=== PATIENT | female | born 1955 | race Caucasian/White ===

== ENCOUNTER 2016-12-07 17:02 | Observation (INO) | payer OTHER ==
[~2016-12-07] VITALS: Ht 162.6 cm; Wt 81.6 kg
[~2016-12-07 17:02] MED LIST: ADVIL200 MG OR; ALLOPURINOL100 MG PO; ASPIRIN LOW DOS81 M2 PO; ASPIRIN325 MG PO; ASPIRIN81 M1 OR; AUGMENTIN875TAB PO; AZOR1 TA1 PO; BENICAR20 MG PO; CENTRU3 PO; CEPHALEXIN500 MG PO; CRESTOR10 MG OR; CRESTOR5 MG PO; DILTIAZEM120 MG PO; DILTIAZEM90 M1 PO; HYDROCHLOROT25 MG OR; HYDROCHLOROT25 MG PO; IMODIUM2 MG PO; K-DUR/KLOR-CON20 MEQ PO; KLOR-CON20 MEQ PO; LEVAQUIN500 MG OR; LEVOTHYROXIN25 MC1 PO; LISINOPRIL10 MG PO; LORAZEPAM0.5 MG PO; LORTAB 5/3255 MG PO; LOSARTAN POT25 MG PO; MAG6464 MG PO; MAGNACAPS100 MG PO; NEXIUM40 M1 OR; NORVASC2.5 MG OR; NORVASC2.5 MG PO; NORVASC5 M1 PO; OMEPRAZOLE20 MG PO; OXYCODONE10 M1 PO; PERCOCET 10/31 COMBO PO; PERCOCET 5/325M1 TAB PO; PERCOCET1 TA4 PO; POT CHLORIDE20 ME3 OR; PRALUENT75 MG/ML IM; SPIRONOLACT25 MG PO; ST JOSEPH75 MG OR; TRAMADOL HYDROC50 MG PO; TYLENOL # 31 TA1 PO; VITAMIN D31000 UNI1 PO; WELCHOL3.75 GM OR; WELLBUTRI1 OR; XANAX0.25 MG OR; XANAX0.5 MG PO; ZOFRAN4 MG/TAB PO; ZOLPIDEM10 M1 PO; ZOLPIDEM5 M1 PO
[2016-12-07 18:06] LABS: URINE BILIRUBIN - DIPSTICK NEGATIVE (NEGATIVE); URINE BLOOD DIPSTICK TRACE-INTACT (NEGATIVE); URINE CLARITY CLEAR; URINE COLOR YELLOW; URINE GLUCOSE - DIPSTICK NEGATIVE (NEGATIVE); URINE KETONE NEGATIVE (NEGATIVE); URINE LEUK ESTERASE NEGATIVE (NEGATIVE); URINE NITRITE - DIPSTICK NEGATIVE (Negative); URINE PROTEIN - DIPSTICK NEGATIVE (NEG-TRACE); URINE SPECIFIC GRAVITY <=1.005; URINE UROBILINOGEN - DIPSTICK 0.2 E.U./dL (0.2)
[2016-12-07 18:12] LABS: HEMATOCRIT 39.4 % (37.0-47.0); HEMOGLOBIN 13.5 g/dl (12.0-16.0); IMMATURE GRANULOCYTES 0.3 % (0.0-1.0); MEAN CELL VOLUME 94.9 fL CALC (80.0-100.0); MEAN CORPUSCULAR HGB 32.5 pG CALC (26.0-32.0); MEAN CORPUSCULAR HGB CONC 34.3 g/L CALC (32.0-36.0); NEUT# 5.69 thou/uL (2.00-7.15); RED BLOOD COUNT 4.15 mill/uL (4.20-5.60); RED CELL DISTRI WIDTH 12.4 % (11.5-15.5)
[2016-12-07 18:26] LABS: ALBUMIN 4.9 g/dL (3.2-5.0); ALKALINE PHOSPHATASE 81 u/l (38-126); AMYLASE 76 u/l (30-110); ANION GAP 17 (6-22 (CALC)); BILIRUBIN, TOTAL 0.7 mg/dL (0.0-1.4); BUN 13 mg/dL (8-23); BUN/CREATININE RATIO 12 (12-20 (CALC)); CALCIUM 10.1 mg/dL (8.4-10.2); CARBON DIOXIDE 25 mmol/l (22-30); CHLORIDE 101 mmol/l (95-108); CREATININE 1.1 mg/dL (0.5-1.0); GFR 50 ML/MIN (>=60 (CALC)); GFR FOR AFR.AMER. > 60 ML/MIN (>=60 (CALC)); GLUCOSE 111 mg/dL (82-115); LIPASE 164 u/l (23-300); POTASSIUM 3.8 mmol/l (3.5-5.1); SGOT/AST 32 u/l (9-36); SGPT/ALT 37 u/l (11-66); SODIUM 139 mmol/l (137-146); TOTAL PROTEIN 8.1 g/dL (6.3-8.2)
[2016-12-07 18:34] LABS: MYOGLOBIN 44 ng/mL (0 - 62)
[2016-12-07 23:00] VITALS: BP 189/84
[2016-12-08 00:15] VITALS: BP 144/62
[2016-12-08 05:10] VITALS: BP 154/94
[2016-12-08 06:43] LABS: HEMATOCRIT 38.8 % (37.0-47.0); HEMOGLOBIN 12.9 g/dl (12.0-16.0); IMMATURE GRANULOCYTES 0.3 % (0.0-1.0); MEAN CELL VOLUME 97.5 fL CALC (80.0-100.0); MEAN CORPUSCULAR HGB 32.4 pG CALC (26.0-32.0); MEAN CORPUSCULAR HGB CONC 33.2 g/L CALC (32.0-36.0); NEUT# 3.13 thou/uL (2.00-7.15); RED BLOOD COUNT 3.98 mill/uL (4.20-5.60); RED CELL DISTRI WIDTH 12.7 % (11.5-15.5)
[2016-12-08 07:03] LABS: ANION GAP 15 (6-22 (CALC)); BUN 13 mg/dL (8-23); BUN/CREATININE RATIO 13 (12-20 (CALC)); CALCIUM 9.9 mg/dL (8.4-10.2); CARBON DIOXIDE 28 mmol/l (22-30); CHLORIDE 101 mmol/l (95-108); GFR 56 ML/MIN (>=60 (CALC)); GFR FOR AFR.AMER. > 60 ML/MIN (>=60 (CALC)); GLUCOSE 97 mg/dL (82-115); POTASSIUM 4.1 mmol/l (3.5-5.1); SODIUM 139 mmol/l (137-146)
[2016-12-08 07:59] VITALS: BP 132/69
[2016-12-08 08:21] VITALS: BP 132/69
[2016-12-08] MEDS ORDERED: NORVASC2.5 MG PO (11:22)
[2016-12-08] MEDS ORDERED: BUSPAR5 M1 PO (11:23)
== END 2016-12-08 12:16 | disposition home or self-care (01) | DRG 313 ==
LOC: ENPENDDIS → ED 17:02 → ED-I 21:00 → ED 21:19 → MS2 21:20
PROVIDERS: Emergency Medicine; ADMIT Internal Medicine; ATTEND Internal Medicine
DX: R07.9 Chest pain, unspecified (principal); I10 Essential (primary) hypertension; K44.9 Diaphragmatic hernia without obstruction or gangrene; F41.9 Anxiety disorder, unspecified; F41.0 Panic disorder [episodic paroxysmal anxiety]; K21.9 Gastro-esophageal reflux disease without esophagitis; E78.5 Hyperlipidemia, unspecified; D30.00 Benign neoplasm of unspecified kidney; E03.9 Hypothyroidism, unspecified; R91.1 Solitary pulmonary nodule; F32.9 Major depressive disorder, single episode, unspecified; Z87.891 Personal history of nicotine dependence
CPT/HCPCS: G0378

== ENCOUNTER 2017-02-03 18:39 | Emergency (ER) | payer OTHER ==
[~2017-02-03] VITALS: Ht 162.6 cm; Wt 85.0 kg
[~2017-02-03 18:39] MED LIST changes: +BUSPAR5 M1 PO
[2017-02-03] MEDS ORDERED: AMLODIPINE BESYL5 MG PO (18:57)
[2017-02-03 20:58] LABS: HEMATOCRIT 37.9 % (37.0-47.0); HEMOGLOBIN 12.8 g/dl (12.0-16.0); IMMATURE GRANULOCYTES 0.2 % (0.0-1.0); MEAN CELL VOLUME 96.2 fL CALC (80.0-100.0); MEAN CORPUSCULAR HGB 32.5 pG CALC (26.0-32.0); MEAN CORPUSCULAR HGB CONC 33.8 g/L CALC (32.0-36.0); NEUT# 5.54 thou/uL (2.00-7.15); RED BLOOD COUNT 3.94 mill/uL (4.20-5.60); RED CELL DISTRI WIDTH 12.5 % (11.5-15.5)
[2017-02-03 20:59] LABS: URINE BILIRUBIN - DIPSTICK NEGATIVE (NEGATIVE); URINE BLOOD DIPSTICK TRACE-INTACT (NEGATIVE); URINE CLARITY CLEAR; URINE COLOR YELLOW; URINE GLUCOSE - DIPSTICK NEGATIVE (NEGATIVE); URINE KETONE NEGATIVE (NEGATIVE); URINE LEUK ESTERASE NEGATIVE (NEGATIVE); URINE NITRITE - DIPSTICK NEGATIVE (Negative); URINE PROTEIN - DIPSTICK NEGATIVE (NEG-TRACE); URINE SPECIFIC GRAVITY <=1.005; URINE UROBILINOGEN - DIPSTICK 0.2 E.U./dL (0.2)
[2017-02-03 21:27] LABS: ALBUMIN 4.5 g/dL (3.2-5.0); ALKALINE PHOSPHATASE 49 u/l (38-126); ANION GAP 17 (6-22 (CALC)); BILIRUBIN, TOTAL 0.5 mg/dL (0.0-1.4); BUN 15 mg/dL (8-23); BUN/CREATININE RATIO 14 (12-20 (CALC)); CALCIUM 9.6 mg/dL (8.4-10.2); CARBON DIOXIDE 24 mmol/l (22-30); CHLORIDE 102 mmol/l (95-108); CREATININE 1.1 mg/dL (0.5-1.0); GFR 50 ML/MIN (>=60 (CALC)); GFR FOR AFR.AMER. > 60 ML/MIN (>=60 (CALC)); GLUCOSE 109 mg/dL (82-115); POTASSIUM 3.8 mmol/l (3.5-5.1); SGOT/AST 23 u/l (9-36); SGPT/ALT 35 u/l (11-66); SODIUM 139 mmol/l (137-146); TOTAL PROTEIN 7.2 g/dL (6.3-8.2)
[2017-02-03 23:15] VITALS: BP 116/56
[2017-02-03] MEDS ORDERED: ULTRAM50 M1 PO (23:26)
[2017-02-03] MEDS ORDERED: KEFLEX500 M1 PO (23:26)
== END 2017-02-03 23:15 | disposition home or self-care (01) | DRG 607 ==
LOC: ED 18:39
PROVIDERS: Emergency Medicine
DX: R22.42 Localized swelling, mass and lump, left lower limb (principal); M79.672 Pain in left foot; X58.XXXA Exposure to other specified factors, initial encounter; Y93.H9 Activity, other involving exterior property and land maintenance, building and construction; Y92.007 Garden or yard of unspecified non-institutional (private) residence as the place of occurrence of the external cause

== ENCOUNTER 2017-08-04 14:07 | Emergency (ER) | payer OTHER ==
[~2017-08-04] VITALS: Ht 152.4 cm; Wt 87.0 kg
[~2017-08-04 14:07] MED LIST changes: +AMLODIPINE BESYL5 MG PO; +KEFLEX500 M1 PO; +ULTRAM50 M1 PO
[2017-08-04 15:06] LABS: HEMATOCRIT 40.6 % (37.0-47.0); HEMOGLOBIN 13.9 g/dl (12.0-16.0); IMMATURE GRANULOCYTES 0.2 % (0.0-1.0); MEAN CELL VOLUME 94.9 fL CALC (80.0-100.0); MEAN CORPUSCULAR HGB 32.5 pG CALC (26.0-32.0); MEAN CORPUSCULAR HGB CONC 34.2 g/L CALC (32.0-36.0); NEUT# 6.47 thou/uL (2.00-7.15); RED BLOOD COUNT 4.28 mill/uL (4.20-5.60); RED CELL DISTRI WIDTH 13.1 % (11.5-15.5)
[2017-08-04 15:28] LABS: ALBUMIN 5.2 g/dL (3.2-5.0); BILIRUBIN, TOTAL 0.7 mg/dL (0.0-1.4); CREATININE 1.2 mg/dL (0.5-1.0); POTASSIUM 4.2 mmol/l (3.5-5.1); TOTAL PROTEIN 7.9 g/dL (6.3-8.2)
[2017-08-04 15:43] LABS: URINE BILIRUBIN - DIPSTICK NEGATIVE (NEGATIVE); URINE BLOOD DIPSTICK TRACE-INTACT (NEGATIVE); URINE COLOR YELLOW; URINE GLUCOSE - DIPSTICK NEGATIVE (NEGATIVE); URINE KETONE NEGATIVE (NEGATIVE); URINE LEUK ESTERASE NEGATIVE (NEGATIVE); URINE NITRITE - DIPSTICK NEGATIVE (Negative); URINE PROTEIN - DIPSTICK NEGATIVE (NEG-TRACE); URINE UROBILINOGEN - DIPSTICK 0.2 E.U./dL (0.2)
[2017-08-04 16:10] LABS: URINE CLARITY CLEAR
[2017-08-04 16:39] VITALS: BP 159/86
== END 2017-08-04 16:39 | disposition home or self-care (01) | DRG 392 ==
LOC: ED 14:07
PROVIDERS: Family Medicine
DX: R10.31 Right lower quadrant pain (principal); E78.5 Hyperlipidemia, unspecified; I10 Essential (primary) hypertension; F41.9 Anxiety disorder, unspecified

== ENCOUNTER 2018-05-13 16:00 | Emergency (ER) | payer OTHER ==
[~2018-05-13] VITALS: Ht 162.6 cm; Wt 95.0 kg
[2018-05-13 17:12] LABS: HEMATOCRIT 38.7 % (37.0-47.0); HEMOGLOBIN 13.2 g/dl (12.0-16.0); IMMATURE GRANULOCYTES 0.3 % (0.0-5.0); MEAN CELL VOLUME 97.2 fL CALC (80.0-100.0); MEAN CORPUSCULAR HGB 33.2 pG CALC (26.0-32.0); MEAN CORPUSCULAR HGB CONC 34.1 g/L CALC (32.0-36.0); NEUT# 4.47 thou/uL (2.00-7.15); RED BLOOD COUNT 3.98 mill/uL (4.20-5.60); RED CELL DISTRI WIDTH 12.7 % (11.5-15.5)
[2018-05-13] MEDS ORDERED: OXYCODONE HCL5 MG PO (17:26)
[2018-05-13] MEDS ORDERED: LORAZEPAM0.5 MG PO (17:27)
[2018-05-13] MEDS ORDERED: ZOLPIDEM5 MG PO (17:27)
[2018-05-13 17:28] LABS: ALBUMIN 4.3 g/dL (3.2-5.0); BILIRUBIN, TOTAL 0.5 mg/dL (0.0-1.4); CREATININE 1.2 mg/dL (0.5-1.0); POTASSIUM 4.2 mmol/l (3.5-5.1); TOTAL PROTEIN 7.1 g/dL (6.3-8.2)
[2018-05-13] MEDS ORDERED: LOSARTAN POT25 MG PO (17:28)
[2018-05-13] MEDS ORDERED: TORADOL PO (17:33)
[2018-05-13] MEDS ORDERED: FLEXERIL PO (17:33)
[2018-05-13 17:47] VITALS: BP 129/75
== END 2018-05-13 17:48 | disposition home or self-care (01) | DRG 552 ==
LOC: ED 16:00
PROVIDERS: Emergency Medicine
DX: S16.1XXA Strain of muscle, fascia and tendon at neck level, initial encounter (principal); M54.9 Dorsalgia, unspecified; K59.00 Constipation, unspecified

== ENCOUNTER 2018-11-13 07:08 | Emergency (ER) | payer OTHER ==
[~2018-11-13] VITALS: Ht 162.6 cm; Wt 88.2 kg
[~2018-11-13 07:08] MED LIST changes: +FLEXERIL PO; +OXYCODONE HCL5 MG PO; +TORADOL PO; +ZOLPIDEM5 MG PO
[2018-11-13 07:39] LABS: HEMATOCRIT 40.9 % (37.0-47.0); IMMATURE GRANULOCYTES 0.2 % (0.0-5.0); MEAN CELL VOLUME 94.5 fL CALC (80.0-100.0); MEAN CORPUSCULAR HGB 32.3 pG CALC (26.0-32.0); MEAN CORPUSCULAR HGB CONC 34.2 g/L CALC (32.0-36.0); NEUT# 4.61 thou/uL (2.00-7.15); RED BLOOD COUNT 4.33 mill/uL (4.20-5.60); RED CELL DISTRI WIDTH 12.8 % (11.5-15.5)
[2018-11-13 08:03] LABS: LIPASE 121 u/l (23-300)
[2018-11-13 08:05] LABS: ALBUMIN 4.7 g/dL (3.2-5.0); CREATININE 1.2 mg/dL (0.5-1.0); TOTAL PROTEIN 7.6 g/dL (6.3-8.2)
[2018-11-13 08:06] LABS: BILIRUBIN, TOTAL 0.9 mg/dL (0.0-1.4)
[2018-11-13] MEDS ORDERED: PERCOCET1 TA4 PO (08:46)
[2018-11-13] MEDS ORDERED: HYDROCHLOROT12.5 MG PO (08:47)
[2018-11-13 09:46] LABS: BARBITURATES NEGATIVE (NEGATIVE); COCAINE NEGATIVE (NEGATIVE); METHADONE NEGATIVE (NEGATIVE); OXCYCODONE NEGATIVE (NEGATIVE); TETRAHYDROCANNABIONOL NEGATIVE (NEGATIVE); TRICYLIC ANTIDEPRESSANTS NEGATIVE (NEGATIVE)
[2018-11-13] MEDS ORDERED: PROTONIX40 M2 PO (10:18)
[2018-11-13 10:26] VITALS: BP 111/68
== END 2018-11-13 10:33 | disposition home or self-care (01) | DRG 313 ==
LOC: ED 07:08
PROVIDERS: Emergency Medicine
DX: R07.89 Other chest pain (principal); I10 Essential (primary) hypertension; Z86.73 Personal history of transient ischemic attack (TIA), and cerebral infarction without residual deficits

== ENCOUNTER 2019-01-19 12:12 | Observation (INO) | payer OTHER ==
[~2019-01-19] VITALS: Ht 162.6 cm; Wt 91.2 kg
[~2019-01-19 12:12] MED LIST changes: +HYDROCHLOROT12.5 MG PO; +PROTONIX40 M2 PO
[2019-01-19 12:58] LABS: HEMATOCRIT 42.3 % (37.0-47.0); HEMOGLOBIN 14.4 g/dl (12.0-16.0); IMMATURE GRANULOCYTES 0.3 % (0.0-5.0); MEAN CELL VOLUME 94.2 fL CALC (80.0-100.0); MEAN CORPUSCULAR HGB 32.1 pG CALC (26.0-32.0); NEUT# 6.59 thou/uL (2.00-7.15); RED BLOOD COUNT 4.49 mill/uL (4.20-5.60); RED CELL DISTRI WIDTH 12.7 % (11.5-15.5)
[2019-01-19 13:03] LABS: ALKALINE PHOSPHATASE 94 u/l (38-126); ANION GAP 21 (6-22 (CALC)); BILIRUBIN, TOTAL 0.7 mg/dL (0.0-1.4); BUN 20 mg/dL (8-23); BUN/CREATININE RATIO 16 (12-20 (CALC)); CARBON DIOXIDE 29 mmol/l (22-30); CHLORIDE 94 mmol/l (95-108); CREATININE 1.2 mg/dL (0.5-1.0); GFR 45 ML/MIN (>=60 (CALC)); GFR FOR AFR.AMER. 55 ML/MIN (>=60 (CALC)); LIPASE 147 u/l (23-300); SGOT/AST 23 u/l (9-36); SODIUM 139 mmol/l (137-146); TOTAL PROTEIN 8.3 g/dL (6.3-8.2)
[2019-01-19] MEDS ORDERED: DRISDOL50000 UNIT PO (13:44)
[2019-01-19 14:44] VITALS: BP 149/91
[2019-01-19 17:34] VITALS: BP 136/80
[2019-01-19 19:13] VITALS: BP 148/72
[2019-01-19 23:22] VITALS: BP 138/76
[2019-01-20 03:50] VITALS: BP 133/81
[2019-01-20 06:24] LABS: ANION GAP 16 (6-22 (CALC)); BUN 14 mg/dL (8-23); BUN/CREATININE RATIO 14 (12-20 (CALC)); CARBON DIOXIDE 28 mmol/l (22-30); CHLORIDE 95 mmol/l (95-108); CREATININE 1.1 mg/dL (0.5-1.0); GFR 50 ML/MIN (>=60 (CALC)); GFR FOR AFR.AMER. > 60 ML/MIN (>=60 (CALC)); POTASSIUM 3.5 mmol/l (3.5-5.1); SODIUM 135 mmol/l (137-146)
[2019-01-20 08:01] VITALS: BP 128/87
[2019-01-20 11:06] VITALS: BP 147/84
== END 2019-01-20 12:15 | disposition home or self-care (01) | DRG 313 ==
LOC: ED 12:12 → ED-I 13:15 → ED 13:44 → MS2 13:45
PROVIDERS: Emergency Medicine; ADMIT Internal Medicine; ATTEND Internal Medicine
DX: R07.9 Chest pain, unspecified (principal); I16.0 Hypertensive urgency; I12.9 Hypertensive chronic kidney disease with stage 1 through stage 4 chronic kidney disease, or unspecified chronic kidney disease; N18.3 Chronic kidney disease, stage 3 (moderate); E78.5 Hyperlipidemia, unspecified; M19.90 Unspecified osteoarthritis, unspecified site; G89.4 Chronic pain syndrome; F41.1 Generalized anxiety disorder; E03.9 Hypothyroidism, unspecified; R42 Dizziness and giddiness; Z86.73 Personal history of transient ischemic attack (TIA), and cerebral infarction without residual deficits; Z87.891 Personal history of nicotine dependence
CPT/HCPCS: G0378

== ENCOUNTER 2020-10-19 22:45 | Emergency (ER) | payer MEDICARE, OTHER ==
[~2020-10-19 22:45] MED LIST changes: +DRISDOL50000 UNIT PO
[2020-10-20 00:50] LABS: HEMOGLOBIN 12.8 g/dl (12.0-16.0); IMMATURE GRANULOCYTES 0.4 % (0.0-5.0); MEAN CORPUSCULAR HGB 33.7 pG CALC (26.0-32.0); MEAN CORPUSCULAR HGB CONC 33.7 g/dL CAL (32.0-36.0); NEUT# 7.2 thou/uL (2.00-7.15); RED BLOOD COUNT 3.8 mill/uL (4.20-5.60); RED CELL DISTRI WIDTH 13.2 % (11.5-15.5)
[2020-10-20 01:04] LABS: ALBUMIN 4.8 g/dL (3.2-5.0); BILIRUBIN, TOTAL 0.8 mg/dL (0.0-1.4); C-REACTIVE PROTEIN 7.4 mg/dL (0-0.9); CREATININE 1.2 mg/dL (0.5-1.0); POTASSIUM 3.8 mmol/l (3.5-5.1); TOTAL PROTEIN 7.7 g/dL (6.3-8.2)
[2020-10-20] MEDS ORDERED: KEFLEX500 MG PO (02:18)
[2020-10-20] MEDS ORDERED: TRAMADOL HYDROC50 M1 PO (02:36)
[2020-10-20 03:00] VITALS: BP 122/56
== END 2020-10-20 03:20 | disposition home or self-care (01) ==
LOC: ED 22:45
PROVIDERS: Emergency Medicine
DX: M79.671 Pain in right foot (principal); Z86.73 Personal history of transient ischemic attack (TIA), and cerebral infarction without residual deficits

== ENCOUNTER 2020-10-25 17:37 | Emergency (ER) | payer MEDICARE, OTHER ==
[~2020-10-25 17:37] MED LIST changes: +KEFLEX500 MG PO; +TRAMADOL HYDROC50 M1 PO
[2020-10-25 19:40] VITALS: BP 123/77
== END 2020-10-25 19:50 | disposition home or self-care (01) ==
LOC: ED 17:37
DX: M79.671 Pain in right foot (principal); S80.11XA Contusion of right lower leg, initial encounter; X58.XXXA Exposure to other specified factors, initial encounter; Y92.89 Other specified places as the place of occurrence of the external cause; Z86.73 Personal history of transient ischemic attack (TIA), and cerebral infarction without residual deficits

== ENCOUNTER 2021-04-08 23:38 | Emergency (ER) | payer MEDICARE, OTHER ==
[~2021-04-08] VITALS: Ht 162.6 cm; Wt 90.0 kg
[2021-04-08 23:45] VITALS: BP 147/82
[2021-04-09 00:31] LABS: HEMATOCRIT 37.3 % (37.0-47.0); HEMOGLOBIN 12.7 g/dl (12.0-16.0); IMMATURE GRANULOCYTES 0.4 % (0.0-5.0); MEAN CELL VOLUME 95.9 fL CALC (80.0-100.0); MEAN CORPUSCULAR HGB 32.6 pG CALC (26.0-32.0); NEUT# 8.41 thou/uL (2.00-7.15); RED BLOOD COUNT 3.89 mill/uL (4.20-5.60); RED CELL DISTRI WIDTH 12.1 % (11.5-15.5)
[2021-04-09 00:39] LABS: ALBUMIN 4.4 g/dL (3.2-5.0); ALKALINE PHOSPHATASE 74 u/l (38-126); ANION GAP 15 (6-22 (CALC)); BILIRUBIN, TOTAL 1.5 mg/dL (0.0-1.4); BUN 12 mg/dL (8-23); BUN/CREATININE RATIO 12 (12-20 (CALC)); CARBON DIOXIDE 27 mmol/l (22-30); CHLORIDE 92 mmol/l (95-108); GFR 55 ML/MIN (>=60 (CALC)); GFR FOR AFR.AMER. > 60 ML/MIN (>=60 (CALC)); POTASSIUM 3.4 mmol/l (3.5-5.1); SGOT/AST 21 u/l (9-36); SODIUM 131 mmol/l (137-146); TOTAL PROTEIN 7.4 g/dL (6.3-8.2)
[2021-04-09] MEDS ORDERED: INDOMETHACIN75 MG PO (00:48)
[2021-04-09] MEDS ORDERED: KEFLEX500 MG PO (00:48)
[2021-04-09] MEDS ORDERED: HYDROCO/APAP1 TA9 PO (00:48)
== END 2021-04-09 00:12 | disposition home or self-care (01) ==
LOC: ED 23:38
DX: M10.072 Idiopathic gout, left ankle and foot (principal); M19.072 Primary osteoarthritis, left ankle and foot; L03.116 Cellulitis of left lower limb; Z86.73 Personal history of transient ischemic attack (TIA), and cerebral infarction without residual deficits

== ENCOUNTER 2021-08-07 15:03 | Emergency (ER) | payer MEDICARE, OTHER ==
[~2021-08-07] VITALS: Ht 162.6 cm; Wt 68.0 kg
[~2021-08-07 15:03] MED LIST changes: +HYDROCO/APAP1 TA9 PO; +INDOMETHACIN75 MG PO
[2021-08-07 20:04] LABS: HEMATOCRIT 44.7 % (37.0-47.0); HEMOGLOBIN 14.9 g/dl (12.0-16.0); IMMATURE GRANULOCYTES 0.1 % (0.0-5.0); MEAN CELL VOLUME 99.8 fL CALC (80.0-100.0); MEAN CORPUSCULAR HGB 33.3 pG CALC (26.0-32.0); MEAN CORPUSCULAR HGB CONC 33.3 g/dL CAL (32.0-36.0); NEUT# 5.65 thou/uL (2.00-7.15); RED BLOOD COUNT 4.48 mill/uL (4.20-5.60); RED CELL DISTRI WIDTH 12.1 % (11.5-15.5)
[2021-08-07 20:19] LABS: ALBUMIN 4.7 g/dL (3.2-5.0); ALKALINE PHOSPHATASE 76 u/l (38-126); AMYLASE 71 u/l (30-110); ANION GAP 17 (6-22 (CALC)); BILIRUBIN, TOTAL 0.7 mg/dL (0.0-1.4); BUN 14 mg/dL (8-23); BUN/CREATININE RATIO 11 (12-20 (CALC)); CARBON DIOXIDE 28 mmol/l (22-30); CHLORIDE 93 mmol/l (95-108); CREATININE 1.3 mg/dL (0.5-1.0); GFR 41 ML/MIN (>=60 (CALC)); GFR FOR AFR.AMER. 50 ML/MIN (>=60 (CALC)); POTASSIUM 3.4 mmol/l (3.5-5.1); SGOT/AST 34 u/l (9-36); SODIUM 135 mmol/l (137-146); TOTAL PROTEIN 8.2 g/dL (6.3-8.2)
[2021-08-07 20:31] LABS: MYOGLOBIN 80 ng/mL (0 - 62)
[2021-08-07] MEDS ORDERED: PROTONIX40 M2 PO (20:37)
[2021-08-07] MEDS ORDERED: PROMETHAZINE HY25 M1 PO (20:37)
[2021-08-07 21:49] VITALS: BP 148/78
== END 2021-08-07 21:48 | disposition home or self-care (01) ==
LOC: ED 15:03
PROVIDERS: Emergency Medicine
DX: R11.2 Nausea with vomiting, unspecified (principal); R19.7 Diarrhea, unspecified; K21.9 Gastro-esophageal reflux disease without esophagitis; M19.012 Primary osteoarthritis, left shoulder; I10 Essential (primary) hypertension; E78.5 Hyperlipidemia, unspecified; E03.9 Hypothyroidism, unspecified; Z86.73 Personal history of transient ischemic attack (TIA), and cerebral infarction without residual deficits
CPT/HCPCS: S0164

== ENCOUNTER 2022-02-26 07:24 | Emergency (ER) | payer MEDICARE, OTHER ==
[2022-02-26] VITALS (8 sets, daily range): BP systolic 116–147; BP diastolic 56–71
[~2022-02-26] VITALS: Ht 162.6 cm; Wt 100.0 kg
[~2022-02-26 07:24] MED LIST changes: +PROMETHAZINE HY25 M1 PO
[2022-02-26 07:58] LABS: HEMATOCRIT 35.4 % (37.0-47.0); HEMOGLOBIN 12.3 g/dl (12.0-16.0); IMMATURE GRANULOCYTES 0.2 % (0.0-5.0); MEAN CELL VOLUME 96.7 fL CALC (80.0-100.0); MEAN CORPUSCULAR HGB 33.6 pG CALC (26.0-32.0); MEAN CORPUSCULAR HGB CONC 34.7 g/dL CAL (32.0-36.0); NEUT# 6.68 thou/uL (2.00-7.15); RED BLOOD COUNT 3.66 mill/uL (4.20-5.60); RED CELL DISTRI WIDTH 12.7 % (11.5-15.5)
[2022-02-26 08:21] LABS: ALBUMIN 4.3 g/dL (3.2-5.0); BILIRUBIN, TOTAL 0.9 mg/dL (0.0-1.4); CREATININE 1.1 mg/dL (0.5-1.0); POTASSIUM 3.5 mmol/l (3.5-5.1); TOTAL PROTEIN 7.2 g/dL (6.3-8.2)
[2022-02-26 09:42] LABS: URINE BILIRUBIN - DIPSTICK NEGATIVE (NEGATIVE); URINE BLOOD DIPSTICK NEGATIVE (NEGATIVE); URINE COLOR YELLOW; URINE GLUCOSE - DIPSTICK NEGATIVE (NEGATIVE); URINE KETONE NEGATIVE (NEGATIVE); URINE LEUK ESTERASE NEGATIVE (NEGATIVE); URINE PROTEIN - DIPSTICK NEGATIVE (NEG-TRACE); URINE SPECIFIC GRAVITY <=1.005; URINE UROBILINOGEN - DIPSTICK 0.2 E.U./dL (0.2)
[2022-02-26 09:48] LABS: URINE NITRITE - DIPSTICK NEGATIVE (Negative)
[2022-02-26] MEDS ORDERED: CIPROFLOXACN500 MG PO (10:12)
[2022-02-26] MEDS ORDERED: METRONIDAZOLE500 MG PO (10:12)
[2022-02-26] MEDS ORDERED: ZOFRAN4 MG/TAB PO (10:12)
== END 2022-02-26 10:31 | disposition home or self-care (01) ==
LOC: ED 07:24
PROVIDERS: Family Medicine
DX: M54.6 Pain in thoracic spine (principal); K57.32 Diverticulitis of large intestine without perforation or abscess without bleeding; R91.1 Solitary pulmonary nodule; I10 Essential (primary) hypertension; E03.9 Hypothyroidism, unspecified; E78.5 Hyperlipidemia, unspecified; Z86.73 Personal history of transient ischemic attack (TIA), and cerebral infarction without residual deficits; R06.02 Shortness of breath
CPT/HCPCS: Q9967

== ENCOUNTER 2022-05-14 06:49 | Day surgery (SDC) | payer MEDICARE, OTHER ==
[~2022-05-14] VITALS: Ht 162.6 cm; Wt 78.0 kg
[~2022-05-14 06:49] MED LIST changes: +CIPROFLOXACN500 MG PO; +LOSARTAN POTASS25 MG PO; +MAG-AL PLU1 PO; +METRONIDAZOLE500 MG PO; +PRALUENT75 MG IN
[2022-05-14 09:24] VITALS: BP 130/83
== END 2022-05-14 09:23 | disposition home or self-care (01) ==
LOC: ENDO 06:49 → ORM 09:00 → ENDO 09:00
PROVIDERS: ATTEND Internal Medicine Gastroenterology
PROC: 0DBP8ZX Excision of Rectum, Via Natural or Artificial Opening Endoscopic, Diagnostic (ICD-10-PCS; principal; 2022-05-14)
DX: K57.30 Diverticulosis of large intestine without perforation or abscess without bleeding (principal); K62.1 Rectal polyp; K64.8 Other hemorrhoids; I12.9 Hypertensive chronic kidney disease with stage 1 through stage 4 chronic kidney disease, or unspecified chronic kidney disease; N18.30 Chronic kidney disease, stage 3 unspecified; E78.5 Hyperlipidemia, unspecified; F41.9 Anxiety disorder, unspecified; Z86.010 Personal history of colon polyps

== ENCOUNTER 2023-07-15 08:22 | Emergency (ER) | payer MEDICARE, OTHER ==
[2023-07-15] VITALS (18 sets, daily range): BP systolic 82–136; BP diastolic 48–89
[~2023-07-15] VITALS: Ht 162.6 cm; Wt 91.0 kg
[2023-07-15 09:09] LABS: BASO% 0.3 % (0-3); EOS% 11.9 % (0-8); HEMATOCRIT 41.6 % (37.0-47.0); HEMOGLOBIN 14.5 g/dl (12.0-16.0); IMMATURE GRANULOCYTES 0.2 % (0.0-5.0); LYMPH% 31.4 % (15-41); MEAN CELL VOLUME 99.3 fL CALC (80.0-100.0); MEAN CORPUSCULAR HGB 34.6 pG CALC (26.0-32.0); MEAN CORPUSCULAR HGB CONC 34.9 g/dL CAL (32.0-36.0); MONO% 7.4 % (2-13); NEUT# 4.6 thou/uL (2.00-7.15); NEUT% 48.8 % (42-76); RED BLOOD COUNT 4.19 mill/uL (4.20-5.60); RED CELL DISTRI WIDTH 12.8 % (11.5-15.5)
[2023-07-15 09:30] LABS: ALBUMIN 3.6 g/dL (3.2-5.0); BILIRUBIN, TOTAL 0.6 mg/dL (0.02-1.3); CREATININE 1.5 mg/dL (0.5-1.0); POTASSIUM 3.2 mmol/l (3.5-5.1); TOTAL PROTEIN 6.2 g/dL (6.3-8.2)
[2023-07-15 09:36] LABS: MAGNESIUM 1.1 mg/dL (1.6-2.3)
[2023-07-15 10:08] LABS: TSH, 3RD GENERATION 4.29 uIU/mL (0.47 - 4.68)
[2023-07-15] MEDS ORDERED: HYDROCHLOROT12.5 M1 PO (10:11)
[2023-07-15] MEDS ORDERED: PREDNISONE50 MG PO (12:24)
== END 2023-07-15 12:40 | disposition home or self-care (01) ==
LOC: ED 08:22
PROVIDERS: Family Medicine
DX: L50.0 Allergic urticaria (principal); R11.2 Nausea with vomiting, unspecified; I10 Essential (primary) hypertension; E03.9 Hypothyroidism, unspecified; E78.5 Hyperlipidemia, unspecified; Z86.73 Personal history of transient ischemic attack (TIA), and cerebral infarction without residual deficits
CPT/HCPCS: J3475

== ENCOUNTER 2023-07-30 12:41 | Observation (INO) | payer MEDICARE, OTHER ==
[2023-07-30] VITALS (45 sets, daily range): BP systolic 116–181; BP diastolic 64–120
[~2023-07-30] VITALS: Ht 162.6 cm; Wt 88.4 kg
[~2023-07-30 12:41] MED LIST changes: +HYDROCHLOROT12.5 M1 PO; +PREDNISONE50 MG PO
[2023-07-30] MEDS ORDERED: ASPIRIN 81 MG/TAB PO ONE (13:00)
[2023-07-30] MEDS ORDERED: NITROGLYCERIN 0.4 MG/TAB SL ONE (13:20)
[2023-07-30 13:35] LABS: ALBUMIN 4.2 g/dL (3.2-5.0); ALKALINE PHOSPHATASE 86 u/l (38-126); ANION GAP 18 (6-22 (CALC)); BILIRUBIN, TOTAL 0.7 mg/dL (0.02-1.3); BUN 16 mg/dL (8-23); BUN/CREATININE RATIO 11 (12-20 (CALC)); CARBON DIOXIDE 23 mmol/l (22-30); CHLORIDE 97 mmol/l (95-108); CREATININE 1.5 mg/dL (0.5-1.0); GFR FOR AFR.AMER. 42 ML/MIN (>=60 (CALC)); GFR OTHER RACES 35 ML/MIN (>=60 (CALC)); POTASSIUM 3.6 mmol/l (3.5-5.1); SGOT/AST 32 u/l (9-36); SODIUM 134 mmol/l (137-146); TOTAL PROTEIN 6.7 g/dL (6.3-8.2)
[2023-07-30 13:39] LABS: BASO% 0.3 % (0-3); EOS% 16.5 % (0-8); HEMATOCRIT 44.1 % (37.0-47.0); HEMOGLOBIN 15.6 g/dl (12.0-16.0); IMMATURE GRANULOCYTES 0.2 % (0.0-5.0); LYMPH% 14.5 % (15-41); MEAN CELL VOLUME 99.3 fL CALC (80.0-100.0); MEAN CORPUSCULAR HGB 35.1 pG CALC (26.0-32.0); MEAN CORPUSCULAR HGB CONC 35.4 g/dL CAL (32.0-36.0); MONO% 4.6 % (2-13); NEUT# 7.43 thou/uL (2.00-7.15); NEUT% 63.9 % (42-76); RED BLOOD COUNT 4.44 mill/uL (4.20-5.60); RED CELL DISTRI WIDTH 12.8 % (11.5-15.5)
[2023-07-30] MEDS ORDERED: AMLODIPINE BESYL5 MG PO (14:17)
[2023-07-30] MEDS ORDERED: methylPREDNISolone SODIUM SUCC 125 MG/2 ML SDV IV ONE (15:05)
[2023-07-30] MEDS ORDERED: DiphenhydrAMINE HCL 50 MG/ML SDV IV ONE ×2 (15:05→19:45)
[2023-07-30] MEDS ORDERED: MAGNESIUM HYDROXIDE 30 ML UDC PO PRN (15:10)
[2023-07-30] MEDS ORDERED: SODIUM CHLORIDE 0.9% 1,000 ML IV PRN (15:10)
[2023-07-30] MEDS ORDERED: NITROGLYCERIN 0.4 MG/TAB SL PRN (15:10)
[2023-07-30] MEDS ORDERED: ACETAMINOPHEN 325 MG/TAB PO PRN (15:10)
[2023-07-30] MEDS ORDERED: MORPHINE SULFATE 4 MG/ML VIAL IV PRN (15:15)
[2023-07-30] MEDS ORDERED: METOPROLOL TARTRATE 25 MG/TAB PO SCH (16:00)
[2023-07-30] MEDS ORDERED: DiphenhydrAMINE HCL 50 MG/ML SDV IV PRN (19:45)
[2023-07-30] MEDS ORDERED: LORazepam 0.5 MG/TAB PO PRN (19:45)
[2023-07-30] MEDS ORDERED: MONTELUKAST SODIUM 10 MG/TAB PO SCH (21:00)
[2023-07-30] MEDS ORDERED: ENOXAPARIN SODIUM 40 MG/0.4 ML SYR SC SCH (21:00)
[2023-07-30] MEDS ORDERED: methylPREDNISolone Sod Succ 40 MG/ML SDV IV SCH (21:00)
[2023-07-30 21:37] LABS: URINE BLOOD DIPSTICK Trace-intact (NEGATIVE); URINE CLARITY Clear; URINE GLUCOSE - DIPSTICK Negative (NEGATIVE); URINE KETONE 15 mg/dL (NEGATIVE); URINE LEUK ESTERASE Negative (Negative); URINE NITRITE - DIPSTICK Negative (Negative); URINE PH 5.5 (4.5-8.0); URINE PROTEIN - DIPSTICK Negative (NEG-TRACE); URINE UROBILINOGEN - DIPSTICK 0.2 E.U./dL (0.2)
[2023-07-30 21:39] LABS: URINE COLOR Yellow
[2023-07-31 00:03] VITALS: BP 139/69
[2023-07-31 04:40] VITALS: BP 150/78
[2023-07-31 06:12] LABS: BASO% 0.2 % (0-3); EOS% 0.2 % (0-8); HEMATOCRIT 39.3 % (37.0-47.0); IMMATURE GRANULOCYTES 0.5 % (0.0-5.0); LYMPH% 19.8 % (15-41); MEAN CELL VOLUME 99.7 fL CALC (80.0-100.0); MEAN CORPUSCULAR HGB 34.5 pG CALC (26.0-32.0); MEAN CORPUSCULAR HGB CONC 34.6 g/dL CAL (32.0-36.0); MONO% 2.1 % (2-13); NEUT# 3.35 thou/uL (2.00-7.15); NEUT% 77.2 % (42-76); RED BLOOD COUNT 3.94 mill/uL (4.20-5.60); RED CELL DISTRI WIDTH 12.7 % (11.5-15.5)
[2023-07-31 06:29] LABS: HEMOGLOBIN 13.6 g/dl (12.0-16.0)
[2023-07-31 06:33] LABS: ALBUMIN 3.7 g/dL (3.2-5.0); BILIRUBIN, TOTAL 0.5 mg/dL (0.02-1.3); CHOLESTEROL HDL RATIO 2.5 (<4.4 (CALC)); CREATININE 1.3 mg/dL (0.5-1.0); MAGNESIUM 1.1 mg/dL (1.6-2.3); POTASSIUM 3.6 mmol/l (3.5-5.1); TOTAL PROTEIN 6.2 g/dL (6.3-8.2)
[2023-07-31 07:29] VITALS: BP 127/63
[2023-07-31 08:17] VITALS: BP 127/63
[2023-07-31] MEDS ORDERED: ASPIRIN 81 MG/TAB PO SCH (09:00)
[2023-07-31] MEDS ORDERED: MAGNESIUM SULFATE HEPTAHYDRATE 100 ML IV SCH (09:00)
[2023-07-31 11:31] VITALS: BP 152/69
[2023-07-31] MEDS ORDERED: XANAX0.5 MG PO (12:01)
[2023-07-31] MEDS ORDERED: ALL DAY ALLG10 MG PO (12:50)
[2023-07-31] MEDS ORDERED: PEPCID AC20 M1 PO (12:51)
[2023-07-31] MEDS ORDERED: HYDROXYZINE HYD25 MG PO (12:55)
[2023-07-31] MEDS ORDERED: SINGULAIR10 MG PO (12:56)
[2023-07-31] MEDS ORDERED: LOPRESSOR25 MG PO (13:41)
== END 2023-07-31 18:03 | disposition home or self-care (01) ==
LOC: ED 12:41 → ED-I 14:35 → ED 14:58 → MS2 14:59
PROVIDERS: Family Medicine; ADMIT Student in an Organized Health Care Education/Training Program; ATTEND Student in an Organized Health Care Education/Training Program
DX: R07.9 Chest pain, unspecified (principal); I49.3 Ventricular premature depolarization; I12.9 Hypertensive chronic kidney disease with stage 1 through stage 4 chronic kidney disease, or unspecified chronic kidney disease; N18.30 Chronic kidney disease, stage 3 unspecified; I25.10 Atherosclerotic heart disease of native coronary artery without angina pectoris; E87.6 Hypokalemia; E83.42 Hypomagnesemia; L50.8 Other urticaria; F41.1 Generalized anxiety disorder; E03.9 Hypothyroidism, unspecified; G47.09 Other insomnia; E78.5 Hyperlipidemia, unspecified; K21.9 Gastro-esophageal reflux disease without esophagitis; G89.4 Chronic pain syndrome; Z86.73 Personal history of transient ischemic attack (TIA), and cerebral infarction without residual deficits; Z87.891 Personal history of nicotine dependence
CPT/HCPCS: J1650; J3475

== ENCOUNTER 2024-01-13 11:22 | Emergency (ER) | payer MEDICARE, OTHER ==
[~2024-01-13] VITALS: Ht 162.6 cm; Wt 84.4 kg
[~2024-01-13 11:22] MED LIST changes: +ALL DAY ALLG10 MG PO; +HYDROXYZINE HYD25 MG PO; +LOPRESSOR25 MG PO; +PEPCID AC20 M1 PO; +SINGULAIR10 MG PO
[2024-01-13 11:51] VITALS: BP 136/78
[2024-01-13 12:01] VITALS: BP 132/73
[2024-01-13 12:30] VITALS: BP 125/75
[2024-01-13] MEDS ORDERED: KETOROLAC TROMETHAMINE 15 MG/ML SDV IM ONE (12:45)
[2024-01-13] MEDS ORDERED: predniSONE 20 MG/TAB PO ONE (12:45)
[2024-01-13 13:01] VITALS: BP 140/66
[2024-01-13 13:01] LABS: BASO% 0.4 % (0-3); EOS% 0.4 % (0-8); HEMATOCRIT 40.8 % (37.0-47.0); HEMOGLOBIN 13.6 g/dl (12.0-16.0); IMMATURE GRANULOCYTES 0.1 % (0.0-5.0); LYMPH% 20.6 % (15-41); MEAN CELL VOLUME 104.3 fL CALC (80.0-100.0); MEAN CORPUSCULAR HGB 34.8 pG CALC (26.0-32.0); MEAN CORPUSCULAR HGB CONC 33.3 g/dL CAL (32.0-36.0); MONO% 10.2 % (2-13); NEUT# 6.68 thou/uL (2.00-7.15); NEUT% 68.3 % (42-76); RED BLOOD COUNT 3.91 mill/uL (4.20-5.60)
[2024-01-13 13:15] LABS: ALBUMIN 4.1 g/dL (3.2-5.0); C-REACTIVE PROTEIN 7.5 mg/dL (0-0.9); CREATININE 1.3 mg/dL (0.5-1.0); POTASSIUM 3.9 mmol/l (3.5-5.1); TOTAL PROTEIN 6.9 g/dL (6.3-8.2)
[2024-01-13 13:16] LABS: BILIRUBIN, TOTAL 1.2 mg/dL (0.02-1.3)
[2024-01-13] MEDS ORDERED: MAGNESIUM SULFATE HEPTAHYDRATE 100 ML IV ONE (13:20)
[2024-01-13] MEDS ORDERED: COLCHICINE 0.6 MG/TAB PO ONE ×2 (13:35→15:00)
[2024-01-13] MEDS ORDERED: COLCHICINE0.6 M2 PO (14:23)
[2024-01-13] MEDS ORDERED: MEDDOSEPAK PO (14:25)
[2024-01-13 17:29] VITALS: BP 140/66
== END 2024-01-13 17:44 | disposition home or self-care (01) ==
LOC: ED 11:22
PROVIDERS: Nurse Practitioner
DX: M10.071 Idiopathic gout, right ankle and foot (principal); E83.42 Hypomagnesemia; I10 Essential (primary) hypertension; E03.9 Hypothyroidism, unspecified; E78.5 Hyperlipidemia, unspecified; Z86.73 Personal history of transient ischemic attack (TIA), and cerebral infarction without residual deficits
CPT/HCPCS: J3475